=== PATIENT | male | born 1980 | race Caucasian/White ===

== ENCOUNTER → 2021-07-02 | Outpatient (CLI) | payer OTHER ==
--- NOTE | 2021-07-02 16:24 | Diagnostic Imaging Report ---
INDICATION: Cough, hypertension. TECHNIQUE: Two view chest 12:45 PM CORRELATION STUDY: None FINDINGS: The heart size, mediastinal configuration and pulmonary vasculature are within normal limits. The lungs are clear with no consolidating infiltrate. There is no significant pleural effusion or pneumothorax. 1 cm nodule lateral right lower lung field, superimposed over the anterior right 6th rib. Visualized osseous structures are unremarkable. IMPRESSION: 1. Negative for acute abnormality of the chest. 2. Small nodule lateral right lower lung. May very well reflect a small granuloma. Incompletely characterized. Given no priors, short-term follow-up repeat imaging or potentially CT imaging of the chest recommended. Dictated by: Dictated on workstation # [id number]
== END ==
LOC: RAD 12:09
PROVIDERS: ATTEND Nurse Practitioner Family
DX: R91.1 Solitary pulmonary nodule (principal); I10 Essential (primary) hypertension; R05.9 Cough, unspecified
CPT/HCPCS: 71047

== ENCOUNTER → 2022-10-20 | Outpatient (CLI) | payer OTHER | LOC: WOUNDCARE 12:16 | PROVIDERS: ATTEND Family Medicine | DX: I96 Gangrene, not elsewhere classified (principal); T81.31XA Disruption of external operation (surgical) wound, not elsewhere classified, initial encounter; L03.114 Cellulitis of left upper limb; A49.9 Bacterial infection, unspecified; W54.0XXA Bitten by dog, initial encounter | CPT/HCPCS: 11042; 87070; 87205; A6260; A6266; G0463 ==

== ENCOUNTER → 2022-10-26 | Outpatient (CLI) | payer OTHER | LOC: WOUNDCARE 09:53 | PROVIDERS: ATTEND Family Medicine | DX: T81.31XA Disruption of external operation (surgical) wound, not elsewhere classified, initial encounter (principal); W54.0XXA Bitten by dog, initial encounter; A49.9 Bacterial infection, unspecified; L03.114 Cellulitis of left upper limb | CPT/HCPCS: 11042; A6197; G0463 ==

== ENCOUNTER → 2022-11-01 | Outpatient (CLI) | payer OTHER | LOC: WOUNDCARE 13:01 | PROVIDERS: ATTEND Family Medicine | DX: I96 Gangrene, not elsewhere classified (principal); T81.31XA Disruption of external operation (surgical) wound, not elsewhere classified, initial encounter; W54.0XXA Bitten by dog, initial encounter | CPT/HCPCS: 11042; A6197; G0463 ==

== ENCOUNTER → 2022-11-08 | Outpatient (CLI) | payer OTHER | LOC: WOUNDCARE 13:21 | PROVIDERS: ATTEND Family Medicine | DX: T81.31XA Disruption of external operation (surgical) wound, not elsewhere classified, initial encounter (principal); W54.0XXA Bitten by dog, initial encounter; I96 Gangrene, not elsewhere classified | CPT/HCPCS: 11042; A6212; G0463 ==

== ENCOUNTER → 2022-11-22 | Outpatient (CLI) | payer OTHER | LOC: WOUNDCARE 13:22 | PROVIDERS: ATTEND Family Medicine | DX: T81.31XA Disruption of external operation (surgical) wound, not elsewhere classified, initial encounter (principal); I96 Gangrene, not elsewhere classified; W54.0XXA Bitten by dog, initial encounter | CPT/HCPCS: 99212 ==

== ENCOUNTER 2023-06-26 19:13 | Emergency (ER) | payer OTHER ==
[~2023-06-26] VITALS: Ht 177.8 cm; Wt 109.0 kg
--- NOTE | 2023-06-26 19:45 | ED Psychosocial ---
General Stated Complaint: SI Source: patient Exam Limitations: no limitations (JOSE A HUIZAR APRN) History of Present Illness Date Seen by Provider: Jun 26, 2023 Time Seen by Provider: 19:27 Initial Comments 43-year-old male presents to the ER with suicidal ideation. States that he regularly feels suicidal, it just gets worse at times. He reports that it became worse last night and this morning. He states he was also having significant suicidal ideation last weekend. He states his plan is to hang himself. He states that he has a place to do it, but does not have rope. He states that he came here instead of going to [employer] to get rope. He states that if he left the hospital he would likely kill himself. He does contract for safety while in the hospital. He states that he will not do anything while he is in the hospital. He saw his therapist today, Josué, at [facility]. His therapist recommended that he do something besides work. Patient reports that he drove a round all day but it did not help. He went back to see his therapist peri, but they told him to come to the ER. He reports new stressors, but states he does not want talk about it. He reports that his job is stressful, but states that he used to like it. He states that generally he does not enjoy anything anymore. He is , states that his relationship is not good at this time. States that he does not have support from his significant other. He states he also does not have support from friends. He reports that he has no future plans that he is looking forward to. He denies chest pain, shortness of air, abdominal pain, nausea, vomiting, diarrhea. He reports that he attempted an overdose a couple years ago. He reports that he was not seen by a doctor after this occurred. He states he has not done anything today to harm himself, but he did punch his steering well. Denies any pain in his hand. (JOSE A HUIZAR APRN) Allergies and Home Medications Allergies Coded Allergies: Alpha-Gal ([id number],3-Gala (Verified Allergy, Severe, 06/26/23) Patient Home Medication List Home Medication List Reviewed: Yes (JOSE A HUIZAR APRN) Review of Systems Constitutional: see HPI (JOSE A HUIZAR APRN) Physical Exam Vital Signs - First Documented 06/26/23 19:18 Temp 36.1 Pulse 107 Resp 18 B/P (MAP) 144/113 (123) Pulse Ox 95 O2 Delivery Room Air (MOON RAYMOND ) Capillary Refill : (JOSE A HUIZAR APRN) Height, Weight, BMI Height: '" Weight: lbs. oz. kg; BMI Method: General Appearance: WD/WN, no apparent distress, other (Tearful) Neck: supple, normal inspection Respiratory: lungs clear, normal breath sounds, no respiratory distress, no accessory muscle use Cardiovascular: regular rate, rhythm Neurologic/Psychiatric: alert, normal mood/affect Appearance/Memory: appropriate appearance, appropriate insight, neat, no memory impairment Behavior/Eye Contact: cooperative, normal speech, avoids eye contact (Will sometimes make eye contact, mostly does not make eye contact) Thoughts/Hallucinations: normal thought pattern, no apparent hallucination Skin: normal color, warm/dry (JOSE A HUIZAR APRN) Progress/Results/Core Measures Results/Orders Lab Results Laboratory Tests Test 06/26/23 19:45 06/26/23 20:04 06/26/23 20:16 Range/Units White Blood Count 9.5 4.3-11.0 10^3/uL Red Blood Count 4.70 4.30-5.52 10^6/uL Hemoglobin 14.9 13.3-17.7 g/dL Hematocrit 44 40-54 % Mean Corpuscular Volume 93 80-99 fL Mean Corpuscular Hemoglobin 32 25-34 pg Mean Corpuscular Hemoglobin Concent 34 32-36 g/dL Red Cell Distribution Width 12.5 10.0-14.5 % Platelet Count 234 130-400 10^3/uL Mean Platelet Volume 10.8 9.0-12.2 fL Immature Granulocyte % (Auto) 0 % Neutrophils (%) (Auto) 73 42-75 % Lymphocytes (%) (Auto) 18 12-44 % Monocytes (%) (Auto) 7 0-12 % Eosinophils (%) (Auto) 1 0-10 % Basophils (%) (Auto) 0 0-10 % Neutrophils # (Auto) 6.9 1.8-7.8 10^3/uL Lymphocytes # (Auto) 1.7 1.0-4.0 10^3/uL Monocytes # (Auto) 0.7 0.0-1.0 10^3/uL Eosinophils # (Auto) 0.1 0.0-0.3 10^3/uL Basophils # (Auto) 0.0 0.0-0.1 10^3/uL Immature Granulocyte # (Auto) 0.0 0.0-0.1 10^3/uL Sodium Level 139 135-145 MMOL/L Potassium Level 3.6 3.6-5.0 MMOL/L Chloride Level 109 H 98-107 MMOL/L Carbon Dioxide Level 19 L 21-32 MMOL/L Anion Gap 11 5-14 MMOL/L Blood Urea Nitrogen 8 7-18 MG/DL Creatinine 1.14 0.60-1.30 MG/DL Estimat Glomerular Filtration Rate 83 BUN/Creatinine Ratio 7 Glucose Level 102 70-105 MG/DL Calcium Level 9.2 8.5-10.1 MG/DL Corrected Calcium 8.9 8.5-10.1 MG/DL Total Bilirubin 0.5 0.1-1.0 MG/DL Aspartate Amino Transf (AST/SGOT) 26 5-34 U/L Alanine Aminotransferase (ALT/SGPT) 40 0-55 U/L Alkaline Phosphatase 66 40-136 U/L Total Protein 7.3 6.4-8.2 GM/DL Albumin 4.4 3.2-4.5 GM/DL TSH [place] Testing 1.27 0.35-4.94 UIU/ML Salicylates Level < 5.0 L 5.0-20.0 MG/DL Acetaminophen Level < 10 L 10-30 UG/ML Serum Alcohol < 10 <10 MG/DL SARS-CoV-2 RNA (RT-PCR) Not Detected Not Detecte Urine Color YELLOW Urine Clarity CLEAR Urine pH 7.0 5-9 Urine Specific [place] 1.010 L 1.016-1.022 Urine Protein NEGATIVE NEGATIVE Urine Glucose (UA) NEGATIVE NEGATIVE Urine Ketones NEGATIVE NEGATIVE Urine Nitrite NEGATIVE NEGATIVE Urine Bilirubin NEGATIVE NEGATIVE Urine Urobilinogen 0.2 < = 1.0 MG/DL Urine Leukocyte Esterase NEGATIVE NEGATIVE Urine RBC (Auto) TRACE H NEGATIVE Urine RBC 0-2 /HPF Urine WBC 0-2 /HPF Urine Squamous Epithelial Cells RARE /HPF Urine Crystals NONE /LPF Urine Bacteria NEGATIVE /HPF Urine Casts NONE /LPF Urine Mucus NEGATIVE /LPF Urine Culture Indicated NO Urine Opiates Screen NEGATIVE NEGATIVE Urine Oxycodone Screen NEGATIVE NEGATIVE Urine Methadone Screen NEGATIVE NEGATIVE Urine Propoxyphene Screen NEGATIVE NEGATIVE Urine Barbiturates Screen NEGATIVE NEGATIVE Ur Tricyclic Antidepressants Screen NEGATIVE NEGATIVE Urine Phencyclidine Screen NEGATIVE NEGATIVE Urine Amphetamines Screen NEGATIVE NEGATIVE Urine Methamphetamines Screen NEGATIVE NEGATIVE Urine Benzodiazepines Screen NEGATIVE NEGATIVE Urine Cocaine Screen NEGATIVE NEGATIVE Urine Cannabinoids Screen POSITIVE H NEGATIVE (MOON RAYMOND DO) My Orders Orders - MOON RAYMOND DO Melatonin Tablet (Melatonin Tablet) (06/26/23 23:30) (MOON RAYMOND DO) Vital Signs/I&O 06/26/23 19:18 Temp 36.1 Pulse 107 Resp 18 B/P (MAP) 144/113 (123) Pulse Ox 95 O2 Delivery Room Air (MOON RAYMOND DO) Progress Progress Note : Progress Note Patient seen and evaluated, resting comfortably in bed, no acute distress, is tearful. Based on exam and symptoms, work-up initiated including CBC, CMP, alcohol level, salicylate level, Tylenol level, urinalysis, urine drug screen, thyroid analyzer, COVID swab, EKG. 2102 Labs and EKG reviewed. EKG shows sinus tachycardia rate of 105. CBC grossly normal. CMP shows slightly elevated chloride 109, slightly decreased CO2 19. Urinalysis negative for infection. Does show trace RBCs. Salicylate negative, Tylenol negative, alcohol level negative. Urine drug screen positive for cannabinoids. TSH normal. COVID-negative. Patient medically cleared. Nursing staff will call for mental health evaluation. Patient handed off to Dr. Raymond, ER physician, at this time. (JOSE A HUIZAR APRN) Initial ECG Impression Date: Jun 26, 2023 Initial ECG Impression Time: 20:07 Initial ECG Rate: 105 Initial ECG Rhythm: S.Tach Initial ECG Intervals: Normal Initial ECG Impression: Normal Initial ECG Comparisson: No Previous ECG Available (JOSE A HUIZAR APRN) Departure Communication (Admissions) 1100: psych screener recs voluntary placement. (MOON RAYMOND DO) Impression Primary Impression: Depression with suicidal ideation Disposition: XF SHT-TRM HOSP Condition: Stable Departure-Patient Inst. Referrals: SARAN VILLALTA DO (PCP/Family) Primary Care Physician JOSE A HUIZAR APRN Jun 26, 2023 19:45 MOON RAYMOND DO Jun 26, 2023 23:25
[2023-06-26 19:51] LABS: BASOPHILS % (AUTO) 0 % (0-10); EOSINOPHILS # (AUTO) 0.1 10^3/uL (0.0-0.3); EOSINOPHILS % (AUTO) 1 % (0-10); HEMATOCRIT 44 % (40-54); HEMOGLOBIN 14.9 g/dL (13.3-17.7); LYMPHOCYTES # (AUTO) 1.7 10^3/uL (1.0-4.0); LYMPHOCYTES % (AUTO) 18 % (12-44); MEAN CORPUSCULAR HEMOGLOBIN 32 pg (25-34); MEAN CORPUSCULAR HGB CONC 34 g/dL (32-36); MEAN CORPUSCULAR VOLUME 93 fL (80-99); MEAN PLATELET VOLUME 10.8 fL (9.0-12.2); MONOCYTES # (AUTO) 0.7 10^3/uL (0.0-1.0); MONOCYTES % (AUTO) 7 % (0-12); NEUTROPHILS # (AUTO) 6.9 10^3/uL (1.8-7.8); NEUTROPHILS % (AUTO) 73 % (42-75); PLATELET COUNT 234 10^3/uL (130-400); WHITE BLOOD COUNT 9.5 10^3/uL (4.3-11.0)
[2023-06-26 20:27] LABS: ALBUMIN 4.4 GM/DL (3.2-4.5); CHLORIDE 109 MMOL/L (98-107); POTASSIUM 3.6 MMOL/L (3.6-5.0); SODIUM 139 MMOL/L (135-145)
[2023-06-26 20:29] LABS: CALCIUM 9.2 MG/DL (8.5-10.1)
[2023-06-26 20:30] LABS: GLUCOSE 102 MG/DL (70-105); TOTAL PROTEIN 7.3 GM/DL (6.4-8.2)
[2023-06-26 20:30] LABS: CLARITY,URINE CLEAR; COLOR,URINE YELLOW
[2023-06-26 20:31] LABS: BACTERIA,URINE NEGATIVE /HPF; BILIRUBIN,URINE NEGATIVE (NEGATIVE); GLUCOSE, URINE (UA) NEGATIVE (NEGATIVE); KETONES,URINE NEGATIVE (NEGATIVE); LEUKOCYTE ESTERASE ,URINE NEGATIVE (NEGATIVE); NITRITE,URINE NEGATIVE (NEGATIVE); PROTEIN,URINE NEGATIVE (NEGATIVE); RBC,URINE 0-2 /HPF; SQUAMOUS EPITHELIAL CELL,UR RARE /HPF; WBC,URINE 0-2 /HPF
[2023-06-26 20:31] LABS: CARBON DIOXIDE 19 MMOL/L (21-32)
[2023-06-26 20:32] LABS: BILIRUBIN,TOTAL 0.5 MG/DL (0.1-1.0)
[2023-06-26 20:34] LABS: ALKALINE PHOSPHATASE 66 U/L (40-136); CREATININE SERUM 1.14 MG/DL (0.60-1.30); GFR ESTIMATED 83
[2023-06-26 20:35] LABS: BUN/CREATININE RATIO 7
[2023-06-26 20:36] LABS: ACETAMINOPHEN < 10 UG/ML (10-30); SALICYLATE < 5.0 MG/DL (5.0-20.0)
[2023-06-26 20:37] LABS: ALANINE AMINOTRANSFERASE 40 U/L (0-55)
[2023-06-26 20:41] LABS: AMPHETAMINE SCREEN, URINE NEGATIVE (NEGATIVE); BARBITURATE SCREEN URINE NEGATIVE (NEGATIVE); CANNABINOID SCREEN, URINE POSITIVE (NEGATIVE); COCAINE SCREEN URINE NEGATIVE (NEGATIVE); METHADONE STAT NEGATIVE (NEGATIVE); OPIATE SCREEN URINE NEGATIVE (NEGATIVE); OXYCODONE STAT NEGATIVE (NEGATIVE); PROPOXYPHENE STAT NEGATIVE (NEGATIVE); TRICYCLIC ANTIDEPRESSANTS SCRE NEGATIVE (NEGATIVE)
[2023-06-26 20:56] LABS: TSH (THYROID ANALYZER) 1.27 UIU/ML (0.35-4.94)
[2023-06-26] MEDS ORDERED: MELATONIN 3 MG TABLET PO SCH (23:30)
[2023-06-27 05:18] VITALS: BP 129/89
== END 2023-06-27 05:18 | disposition short-term general hospital (02) ==
LOC: EDUNIT# 19:13 → ER 19:15
DX: F32.A Depression, unspecified (principal)
CPT/HCPCS: 80053; 80306; 81000; 84443; 85025; 87636; 93005; 99283; G0480 ×3; 36415; 80320; 80329